=== PATIENT | male | born 1940 | race Caucasian/White ===

== ENCOUNTER 2017-03-08 16:49 | Emergency (ER) | payer MEDICARE ==
[~2017-03-08] VITALS: Ht 175.3 cm; Wt 99.0 kg
[~2017-03-08 16:49] MED LIST: CINNAMON500 MG OR; CIPROFLOXACN500 MG PO; DILAUDID 2MG2 MG/TA1 PO; PALMETTO PO
[2017-03-08] MEDS ORDERED: CARB/LEVO SR1 TAB PO (17:34)
[2017-03-08] MEDS ORDERED: DONEPEZIL5 MG PO (17:35)
[2017-03-08] MEDS ORDERED: AZILECT1 MG PO (17:35)
[2017-03-08] MEDS ORDERED: BACTRIM DS1 TAB PO (18:03)
[2017-03-08 18:25] VITALS: BP 136/72
== END 2017-03-08 18:25 | disposition home or self-care (01) ==
LOC: ED 16:49
DX: L03.113 Cellulitis of right upper limb (principal); G20 Parkinson's disease

== ENCOUNTER 2018-01-03 12:03 | Day surgery (SDC) | payer MEDICARE ==
[~2018-01-03] VITALS: Ht 175.3 cm; Wt 89.4 kg
[~2018-01-03 12:03] MED LIST changes: +AZILECT1 MG PO; +BACTRIM DS1 TAB PO; +CARB/LEVO SR1 TAB PO; +DONEPEZIL5 MG PO; +RYTARY 23.75-951 CAP PO
[2018-01-03] MEDS ORDERED: CARB/LEVO1 TA5 PO (13:22)
[2018-01-03 16:19] VITALS: BP 135/69
== END 2018-01-03 16:05 | disposition home or self-care (01) ==
LOC: ENDO 12:03 → ORM 13:15 → ENDO 13:15
PROVIDERS: ATTEND Internal Medicine Gastroenterology
PROC: 0DBL8ZX Excision of Transverse Colon, Via Natural or Artificial Opening Endoscopic, Diagnostic (ICD-10-PCS; principal; 2018-01-03)
PROC: 0DBE8ZX Excision of Large Intestine, Via Natural or Artificial Opening Endoscopic, Diagnostic (ICD-10-PCS; 2018-01-03)
DX: R19.7 Diarrhea, unspecified (principal); D12.3 Benign neoplasm of transverse colon; K64.4 Residual hemorrhoidal skin tags; K64.8 Other hemorrhoids; R13.10 Dysphagia, unspecified; K86.2 Cyst of pancreas; G20 Parkinson's disease

== ENCOUNTER 2019-03-06 07:21 | Day surgery (SDC) | payer MEDICARE ==
[~2019-03-06] VITALS: Ht 175.3 cm; Wt 90.7 kg
[~2019-03-06 07:21] MED LIST changes: +B-12 TR1000 MCG PO; +CARB/LEVO1 TA5 PO; +SINEMET CR 50/200 PO; +VITAMIN B-150 MG PO
[2019-03-06 09:38] VITALS: BP 153/68
== END 2019-03-06 09:54 | disposition home or self-care (01) ==
LOC: ENDO 07:21 → ORM 08:05 → ENDO 09:54 → ORM 18:30
PROVIDERS: ATTEND Internal Medicine Gastroenterology
PROC: 0DBH8ZX Excision of Cecum, Via Natural or Artificial Opening Endoscopic, Diagnostic (ICD-10-PCS; principal; 2019-03-06)
PROC: 0DBE8ZX Excision of Large Intestine, Via Natural or Artificial Opening Endoscopic, Diagnostic (ICD-10-PCS; 2019-03-06)
DX: D12.0 Benign neoplasm of cecum (principal); K57.30 Diverticulosis of large intestine without perforation or abscess without bleeding; K64.4 Residual hemorrhoidal skin tags; K64.8 Other hemorrhoids; G20 Parkinson's disease; K86.2 Cyst of pancreas; Z86.010 Personal history of colon polyps

== ENCOUNTER 2020-09-16 09:14 | Day surgery (SDC) | payer MEDICARE ==
[~2020-09-16] VITALS: Ht 172.7 cm; Wt 87.1 kg
[~2020-09-16 09:14] MED LIST changes: +VITAMIN D1000 UNIT PO
[2020-09-16 11:44] VITALS: BP 167/91
== END 2020-09-16 12:40 | disposition home or self-care (01) ==
LOC: ENDO 09:14
PROVIDERS: ATTEND Internal Medicine Gastroenterology
PROC: 06LY4CC Occlusion of Hemorrhoidal Plexus with Extraluminal Device, Percutaneous Endoscopic Approach (ICD-10-PCS; principal; 2020-09-16)
DX: K64.8 Other hemorrhoids (principal); K59.00 Constipation, unspecified; K57.30 Diverticulosis of large intestine without perforation or abscess without bleeding; K86.2 Cyst of pancreas; G20 Parkinson's disease; Z86.010 Personal history of colon polyps; Z20.822 Contact with and (suspected) exposure to COVID-19